=== PATIENT | female | born 2000 | race Two or more races ===

== ENCOUNTER 2023-12-04 20:19 | Emergency (ER) | payer MEDICAID, OTHER ==
[~2023-12-04] VITALS: Ht 182.9 cm; Wt 63.2 kg
[2023-12-05] MEDS ORDERED: BUPR8SUB18 SL (00:24)
[2023-12-05] MEDS ORDERED: BUPR8MIS SL (01:06)
[2023-12-05 01:22] VITALS: BP 113/73; PULSE 106; RESP 18; TEMP 97.7; O2SAT 95
== END 2023-12-05 01:19 | disposition home or self-care (01) ==
LOC: ER 20:19
DX: F41.9 Anxiety disorder, unspecified (principal); F90.9 Attention-deficit hyperactivity disorder, unspecified type; Z76.0 Encounter for issue of repeat prescription; Z88.6 Allergy status to analgesic agent